=== PATIENT | female | born 1940 | race Caucasian/White ===

== ENCOUNTER 2016-11-01 09:13 | Day surgery (SDC) | payer OTHER ==
[~2016-11-01] VITALS: Ht 157.5 cm; Wt 87.5 kg
[~2016-11-01 09:13] MED LIST: ACETAMINOPHEN325 M1 PO; ALPRAZOLAM0.25 M2 PO; AMBIEN5 MG PO; AMLODIPINE BES2.5 MG PO; ASPIR 8181 M1; ASPIR-LOW81 MG PO; ASPIRIN325 MG PO; ATORVASTATIN CA40 MG PO; Ativan PO; BACLOFEN10 MG PO; CALCIUM 500 +1 EAC4 PO; CLOPIDOGREL75 MG PO; CRESTOR5 MG; CYANOCOBALAM1000 MCG; CYANOCOBALAM1000 MCG PO; Cleocin PO; DAILY VITE1 EAC1 PO; DICLOFENAC SODI75 MG PO; DULCOLAX5 MG PO; Dulcolax PR; ERGOCALCIF50000 UNIT PO; EXTRA STRENGTH500 M1 PO; Ecotrin PO; FEOSOL325 MG PO; FLUOXETINE HCL40 MG PO; FUROSEMIDE20 MG PO; GABAPENTIN300 MG PO; GABAPENTIN600 MG PO; HEPARIN SO5000 UNITS SC; ISOSORBIDE MONO30 MG PO; KENALOG,ARISTOC80 GM TP; LIDODERM 5% P1 PATCH TD; LIPITOR40 MG PO; LISINOPRIL20 MG PO; LISINOPRIL40 MG PO; LITE COAT ASPI325 M1 PO; LOPRESSOR25 MG PO; LOPRESSOR50 MG PO; LOSARTAN POTAS100 MG PO; METOPROLOL SUCC25 MG PO; METOPROLOL TART25 MG PO; METRONIDAZOLE500 MG PO; MILK OF MAGN PO; MIRTAZAPINE15 MG PO; MOTRIN600 MG PO; NEURONTIN300 MG PO; NORCO 5/3251 TABLET PO; OMEPRAZOLE40 M1 PO; Oscal 500 w/Vitamin PO; PAROXETINE HCL10 MG PO; PAROXETINE HCL20 MG PO; PAROXETINE HCL30 MG PO; PAROXETINE HCL40 MG PO; PAXIL10 MG PO; PAXIL40 MG PO; PERCOCET 5/31 TABLET PO; POTASSIUM CHLO10 ME4 PO; PROMETHAZINE HC25 M1 PO; Plavix PO; RESTORIL15 MG; RESTORIL15 MG PO; ROPINIROLE HC0.25 MG PO; SENOKOT S,PE1 TABLET PO; TESSALON200 MG PO; THERAGRAN1 TABLET PO; TIZANIDINE HCL2 MG PO; TRAZODONE HCL50 MG PO; TYLENOL EXTRA500 MG PO; Tylenol Regular Stre PO; ULTRAM50 MG PO; VITAMIN D250000 UNIT PO; VITAMIN D31000 UNI2 PO; VITAMIN D31000 UNIT PO; VITAMIN D5000 UNIT; VOLTAREN75 MG PO; ZANAFLEX2 MG PO; ZOFRAN4 MG PO; ZOLPIDEM TARTRAT5 MG PO
[2016-11-01 10:10] LABS: HEMATOCRIT 39.7 % (36.0-46.0); MCHC 34.3 G/DL (30.0-36.0); MCV 93.4 FL (83-99); MEAN PLAT.VOLUME 10.8 uM^3 (9.5-12.4); PLATELET COUNT 168 K/uL (156-360); RBC DIS.WIDTH-CV 13.8 % (11.8-14.6); RBC DIS.WIDTH-SD 47.1 % (39-53); RED BLOOD COUNT 4.25 M/uL (3.80-5.20); WHITE BLOOD COUNT 6.5 K/uL (4.1-10.2)
[2016-11-01 10:12] VITALS: BP 186/89
[2016-11-01 13:28] VITALS: BP 206/94
[2016-11-01 14:33] VITALS: BP 185/87
== END 2016-11-01 14:50 | disposition home or self-care (01) ==
LOC: SDC 09:13
PROVIDERS: Orthopaedic Surgery
PROC: 01Q53ZZ Repair Median Nerve, Percutaneous Approach (ICD-10-PCS; principal; 2016-11-01)
DX: G56.02 Carpal tunnel syndrome, left upper limb (principal); I10 Essential (primary) hypertension; E78.5 Hyperlipidemia, unspecified; I25.10 Atherosclerotic heart disease of native coronary artery without angina pectoris; I25.2 Old myocardial infarction; Z95.5 Presence of coronary angioplasty implant and graft
CPT/HCPCS: 85027; J0360; J1170; J3010; S0020

== ENCOUNTER 2017-02-09 12:09 | Emergency (ER) | payer OTHER ==
[~2017-02-09] VITALS: Ht 157.5 cm; Wt 102.3 kg
[2017-02-09 13:23] LABS: CHLORIDE 106 mEq/L (99-109); POTASSIUM 3.6 mEq/L (3.7-5.4); SODIUM 138 mEq/L (136-147)
[2017-02-09 13:24] LABS: GLUCOSE 150 mg/dL (70-99)
[2017-02-09 13:25] LABS: EOSINOPHIL (%) 0 % (0-5); HEMATOCRIT 33.6 % (36.0-46.0); IMMATURE GRANULOCYTE (%) 0.4 % (0.0-0.7); INSTRUMENT ABS NEUTROPHIL CT 8.5 K/uL; LYMPHOCYTE COUNT 0.6 K/uL (1.0-2.8); MCH 26.5 PG (29.0-34.0); MCHC 30.7 G/DL (30.0-36.0); MCV 86.4 FL (83-99); MEAN PLAT.VOLUME 11.1 uM^3 (9.5-12.4); MONOCYTE (%) 6.2 % (3-12); MONOCYTE COUNT 0.6 K/uL (0-0.8); NEUTROPHIL (%) 87.3 % (45-76); NEUTROPHIL COUNT 8.5 K/uL (1.8-6.4); PLATELET COUNT 213 K/uL (156-360); RBC DIS.WIDTH-CV 13.4 % (11.8-14.6); RED BLOOD COUNT 3.89 M/uL (3.80-5.20)
[2017-02-09 13:26] LABS: ANION GAP 9 MEQ/L (2-14)
[2017-02-09 13:28] LABS: GFR ESTIMATE (CALCULATED) > 59 mL/min/
[2017-02-09 13:29] LABS: UREA NITROGEN (BUN) 17 mg/dL (9-23)
[2017-02-09 13:31] LABS: WHITE BLOOD COUNT 9.8 K/uL (4.1-10.2)
[2017-02-09] MEDS ORDERED: TYLENOL WITH C1 EACH PO (16:06)
[2017-02-09 16:32] VITALS: BP 137/100
== END 2017-02-09 16:54 | disposition home or self-care (01) ==
LOC: EME 12:09
PROVIDERS: Emergency Medicine
PROC: 2W3DX1Z Immobilization of Left Lower Arm using Splint (ICD-10-PCS; principal; 2017-02-09)
DX: R56.9 Unspecified convulsions (principal); S52.502A Unspecified fracture of the lower end of left radius, initial encounter for closed fracture; W18.30XA Fall on same level, unspecified, initial encounter; Y92.008 Other place in unspecified non-institutional (private) residence as the place of occurrence of the external cause; I10 Essential (primary) hypertension; J45.909 Unspecified asthma, uncomplicated; E78.5 Hyperlipidemia, unspecified; K21.9 Gastro-esophageal reflux disease without esophagitis; I25.10 Atherosclerotic heart disease of native coronary artery without angina pectoris; I25.2 Old myocardial infarction; Z95.5 Presence of coronary angioplasty implant and graft; I50.9 Heart failure, unspecified; Z86.73 Personal history of transient ischemic attack (TIA), and cerebral infarction without residual deficits; F32.9 Major depressive disorder, single episode, unspecified
CPT/HCPCS: 70450; 72125; 73110; 80048; 85025; 93005; 99281; 99284; J2270; J2405; J3010

== ENCOUNTER 2017-02-11 16:15 | Inpatient (IN) | payer OTHER ==
[~2017-02-11] VITALS: Ht 157.5 cm; Wt 92.8 kg
[~2017-02-11 16:15] MED LIST changes: +TYLENOL WITH C1 EACH PO
[2017-02-11 17:13] LABS: POINT-OF-CARE METER ID UU13113702
[2017-02-11 17:45] LABS: CHLORIDE 109 mEq/L (99-109); POTASSIUM 3.6 mEq/L (3.7-5.4); SODIUM 142 mEq/L (136-147)
[2017-02-11 17:47] LABS: GLUCOSE 130 mg/dL (70-99)
[2017-02-11 17:48] LABS: ANION GAP 9 MEQ/L (2-14)
[2017-02-11 17:49] LABS: TOTAL BILIRUBIN 1.1 mg/dL (0.0-1.0)
[2017-02-11 17:50] LABS: SERUM ETHYL ALCOHOL < 10 mg/dL
[2017-02-11 17:51] LABS: GFR ESTIMATE (CALCULATED) 58 mL/min/
[2017-02-11 17:52] LABS: ALKALINE PHOSPHATASE 79 IU/L (3-129)
[2017-02-11 17:53] LABS: UREA NITROGEN (BUN) 23 mg/dL (9-23)
[2017-02-11 17:54] LABS: SALICYLATE < 5.0 MG/DL (15-30)
[2017-02-11 17:59] LABS: HEMATOCRIT 29.9 % (36.0-46.0); MCH 26.3 PG (29.0-34.0); MCHC 30.1 G/DL (30.0-36.0); MCV 87.4 FL (83-99); MEAN PLAT.VOLUME 11.4 uM^3 (9.5-12.4); PLATELET COUNT 178 K/uL (156-360); RBC DIS.WIDTH-CV 13.8 % (11.8-14.6); RBC DIS.WIDTH-SD 43.5 % (39-53); RED BLOOD COUNT 3.42 M/uL (3.80-5.20); WHITE BLOOD COUNT 5.6 K/uL (4.1-10.2)
[2017-02-11 18:24] LABS: ADD MIUA? NO; BILIRUBIN NEGATIVE; BLOOD NEGATIVE; COLOR YELLOW ((YELLOW)); GLUCOSE (STRIP) NEGATIVE; KETONES NEGATIVE; LEUKOCYTES NEGATIVE; NITRITE NEGATIVE; PROTEIN (STRIP) NEGATIVE; SPECIFIC GRAVITY 1.016 (1.000-1.030); UCUL ADDED? NO; UROBILINOGEN 0.2 MG/DL (0.2-1.0)
[2017-02-11 18:43] LABS: COCAINE NEGATIVE (150 ng/mL); METHAMPHETAMINE NEGATIVE (500 ng/mL); PHENCYCLIDINE NEGATIVE (25 ng/mL); THC CANNABINOIDS NEGATIVE (50 ng/mL)
[2017-02-11 18:44] LABS: ADD MEDTOX COMMENT Y; AMPHETAMINE NEGATIVE (500 ng/mL); BARBITURATES NEGATIVE (200 ng/mL); BENZODIAZEPINES NEGATIVE (150 ng/mL); INTERNAL CONTROLS VALID? YES; METHADONE NEGATIVE (200 ng/mL); OPIATES (MORPHINE) PRESUMPTIVE POSITIVE (100 ng/mL); OXYCODONE NEGATIVE (100 ng/mL); PROPOXYPHENE NEGATIVE (300 ng/mL); TRICYCLIC ANTIDEPRESSANTS NEGATIVE (300 ng/mL)
[2017-02-11] MEDS ORDERED: LO-DOSE ASPIRIN81 M2 PO (20:31)
[2017-02-11] MEDS ORDERED: LEVETIRACETAM250 MG PO (20:38)
[2017-02-11 21:45] VITALS: BP 144/75
[2017-02-11 23:58] VITALS: BP 103/53
[2017-02-12 01:28] LABS: TROP-I INTERPRETATION NEGATIVE; TROPONIN-I < 0.01 ng/mL (0.0-0.30)
[2017-02-12 04:25] VITALS: BP 133/73
[2017-02-12 07:52] VITALS: BP 130/62
[2017-02-12 08:48] LABS: ANION GAP 11 MEQ/L (2-14); CHLORIDE 110 MEQ/L (99-109); GFR ESTIMATE (CALCULATED) > 59 mL/min/; GLUCOSE 120 mg/dL (70-99); POTASSIUM 3.3 MEQ/L (3.7-5.4); SAMPLE HEMOLYSIS CHECK 0; SAMPLE ICTERIC CHECK 0; SAMPLE LIPEMIA CHECK 0; SODIUM 143 MEQ/L (136-147); UREA NITROGEN (BUN) 23 mg/dL (9-23)
[2017-02-12 08:52] LABS: TROP-I INTERPRETATION NEGATIVE; TROPONIN-I 0.02 ng/mL (0.0-0.30)
[2017-02-12 09:35] LABS: HEMATOCRIT 31.8 % (36.0-46.0); MCH 26.7 PG (29.0-34.0); MCHC 30.2 G/DL (30.0-36.0); MCV 88.6 FL (83-99); MEAN PLAT.VOLUME 11.4 uM^3 (9.5-12.4); PLATELET COUNT 161 K/uL (156-360); RBC DIS.WIDTH-CV 13.9 % (11.8-14.6); RBC DIS.WIDTH-SD 44.9 % (39-53); RED BLOOD COUNT 3.59 M/uL (3.80-5.20); WHITE BLOOD COUNT 4.9 K/uL (4.1-10.2)
[2017-02-12 11:49] VITALS: BP 143/83
[2017-02-12 15:17] LABS: TROP-I INTERPRETATION NEGATIVE; TROPONIN-I 0.02 ng/mL (0.0-0.30)
[2017-02-12 16:36] VITALS: BP 141/67
[2017-02-12 18:25] VITALS: BP 160/74
[2017-02-12 21:00] VITALS: BP 145/74
[2017-02-13] VITALS (8 sets, daily range): BP systolic 14–184; BP diastolic 66–84
[2017-02-13 11:05] LABS: HEMATOCRIT 35.9 % (36.0-46.0); MCH 26.5 PG (29.0-34.0); MCHC 29.5 G/DL (30.0-36.0); MCV 89.8 FL (83-99); MEAN PLAT.VOLUME 11.2 uM^3 (9.5-12.4); PLATELET COUNT 189 K/uL (156-360); RBC DIS.WIDTH-CV 13.9 % (11.8-14.6); RBC DIS.WIDTH-SD 44.5 % (39-53); WHITE BLOOD COUNT 4.9 K/uL (4.1-10.2)
[2017-02-13 11:31] LABS: ANION GAP 9 MEQ/L (2-14); CHLORIDE 111 MEQ/L (99-109); GFR ESTIMATE (CALCULATED) > 59 mL/min/; GLUCOSE 97 mg/dL (70-99); POTASSIUM 3.7 MEQ/L (3.7-5.4); SAMPLE HEMOLYSIS CHECK 0; SAMPLE ICTERIC CHECK 0; SAMPLE LIPEMIA CHECK 0; SODIUM 147 MEQ/L (136-147); UREA NITROGEN (BUN) 20 mg/dL (9-23)
[2017-02-14] VITALS: BP 152/78
[2017-02-14 04:07] VITALS: BP 177/79
[2017-02-14 04:30] VITALS: BP 154/74
[2017-02-14 07:22] LABS: EOSINOPHIL (%) 3.1 % (0-5); EOSINOPHIL COUNT 0.1 K/uL (0-0.3); HEMATOCRIT 30.1 % (36.0-46.0); IMMATURE GRANULOCYTE (%) 0.5 % (0.0-0.7); INSTRUMENT ABS NEUTROPHIL CT 2.3 K/uL; MCH 27.4 PG (29.0-34.0); MCHC 30.9 G/DL (30.0-36.0); MCV 88.5 FL (83-99); MEAN PLAT.VOLUME 12.1 uM^3 (9.5-12.4); MONOCYTE (%) 8.4 % (3-12); MONOCYTE COUNT 0.3 K/uL (0-0.8); NEUTROPHIL (%) 61.3 % (45-76); NEUTROPHIL COUNT 2.3 K/uL (1.8-6.4); PLATELET COUNT 170 K/uL (156-360); RBC DIS.WIDTH-CV 13.9 % (11.8-14.6); RBC DIS.WIDTH-SD 44.2 % (39-53); WHITE BLOOD COUNT 3.8 K/uL (4.1-10.2)
[2017-02-14 07:40] VITALS: BP 163/68
[2017-02-14 07:56] LABS: ALKALINE PHOSPHATASE 88 IU/L (3-129); ANION GAP 9 MEQ/L (2-14); CHLORIDE 110 MEQ/L (99-109); GFR ESTIMATE (CALCULATED) > 59 mL/min/; GLUCOSE 91 mg/dL (70-99); POTASSIUM 3.6 MEQ/L (3.7-5.4); SAMPLE HEMOLYSIS CHECK 0; SAMPLE ICTERIC CHECK 0; SAMPLE LIPEMIA CHECK 0; SODIUM 145 MEQ/L (136-147); TOTAL BILIRUBIN 0.7 MG/DL (0.0-1.0); UREA NITROGEN (BUN) 14 mg/dL (9-23)
[2017-02-14] MEDS ORDERED: LEVETIRACETAM500 MG PO (11:04)
[2017-02-14 11:27] VITALS: BP 165/76
[2017-02-14 15:02] LABS: CREATINE KINASE 69 IU/L (1-294)
[2017-02-14 15:46] VITALS: BP 127/73
== END 2017-02-14 19:04 | DRG 101 ==
LOC: EME 16:15 → EDOF 20:20 → 3EAST 20:20 → 4EAST 20:20 → 3EAST 02-12 18:13
PROVIDERS: Emergency Medicine; Hospitalist; Internal Medicine; Physician Assistant
PROC: 0RSPXZZ Reposition Left Wrist Joint, External Approach (ICD-10-PCS; principal; 2017-02-12)
DX: G40.909 Epilepsy, unspecified, not intractable, without status epilepticus (principal); T48.1X1A Poisoning by skeletal muscle relaxants [neuromuscular blocking agents], accidental (unintentional), initial encounter; T42.8X1A Poisoning by antiparkinsonism drugs and other central muscle-tone depressants, accidental (unintentional), initial encounter; Y92.009 Unspecified place in unspecified non-institutional (private) residence as the place of occurrence of the external cause; I11.0 Hypertensive heart disease with heart failure; I50.9 Heart failure, unspecified; I25.10 Atherosclerotic heart disease of native coronary artery without angina pectoris; K21.9 Gastro-esophageal reflux disease without esophagitis; Z95.5 Presence of coronary angioplasty implant and graft; I69.354 Hemiplegia and hemiparesis following cerebral infarction affecting left non-dominant side; F32.9 Major depressive disorder, single episode, unspecified; E78.5 Hyperlipidemia, unspecified; E78.00 Pure hypercholesterolemia, unspecified; S52.502A Unspecified fracture of the lower end of left radius, initial encounter for closed fracture; S52.612A Displaced fracture of left ulna styloid process, initial encounter for closed fracture; W19.XXXA Unspecified fall, initial encounter
CPT/HCPCS: 70450; 71010; 72125; 72131; 73110; 80048; 80053; 81003; 82550; 82948; 84484; 84999; 85025; 85027; 93005; 95819; 99281; 99284; 99285; G0480; J1644; J2270; J2310; J2405; J3010; J7030

== ENCOUNTER 2017-05-21 10:50 | Emergency (ER) | payer OTHER ==
[~2017-05-21] VITALS: Ht 157.5 cm; Wt 91.1 kg
[~2017-05-21 10:50] MED LIST changes: +LEVETIRACETAM250 MG PO; +LEVETIRACETAM500 MG PO; +LO-DOSE ASPIRIN81 M2 PO
[2017-05-21 11:29] LABS: MCH 25.6 PG (29.0-34.0); MCHC 30.6 G/DL (30.0-36.0); MCV 83.8 FL (83-99); MEAN PLAT.VOLUME 10.8 uM^3 (9.5-12.4); PLATELET COUNT 184 K/uL (156-360); RBC DIS.WIDTH-CV 16.4 % (11.8-14.6); RBC DIS.WIDTH-SD 50.7 % (39-53); RED BLOOD COUNT 3.94 M/uL (3.80-5.20); WHITE BLOOD COUNT 3.4 K/uL (4.1-10.2)
[2017-05-21 11:34] LABS: INTER. NORMALIZED RATIO 1.1; PROTHROMBIN TIME 12.2 SEC (10.2-12.9)
[2017-05-21 11:37] LABS: D-DIMER ELISA < 150.00 ng/mLDDU (<230)
[2017-05-21 11:39] LABS: CHLORIDE 112 mEq/L (99-109); POTASSIUM 3.5 mEq/L (3.7-5.4); SODIUM 144 mEq/L (136-147)
[2017-05-21 11:40] LABS: GLUCOSE 108 mg/dL (70-99)
[2017-05-21 11:42] LABS: ANION GAP 7 MEQ/L (2-14)
[2017-05-21 11:44] LABS: GFR ESTIMATE (CALCULATED) > 59 mL/min/
[2017-05-21 11:45] LABS: UREA NITROGEN (BUN) 11 mg/dL (9-23)
[2017-05-21 11:50] LABS: TROP-I INTERPRETATION NEGATIVE; TROPONIN-I < 0.01 ng/mL (0.0-0.30)
[2017-05-21] MEDS ORDERED: METOPROLOL SUCC25 MG PO (12:51)
[2017-05-21] MEDS ORDERED: TIZANIDINE HCL2 MG PO (12:57)
[2017-05-21] MEDS ORDERED: TRAMADOL HCL50 MG PO (12:58)
[2017-05-21 13:41] LABS: TROP-I INTERPRETATION NEGATIVE; TROPONIN-I < 0.01 ng/mL (0.0-0.30)
[2017-05-21 15:38] VITALS: BP 170/92
== END 2017-05-21 15:38 | disposition home or self-care (01) ==
LOC: EME 10:50 → ENRESERV 12:55 → CANRESERV 13:17 → ENRESERV 13:17 → EME 15:38
PROVIDERS: Emergency Medicine
DX: R07.9 Chest pain, unspecified (principal); R06.02 Shortness of breath; E78.5 Hyperlipidemia, unspecified; I25.2 Old myocardial infarction; Z86.73 Personal history of transient ischemic attack (TIA), and cerebral infarction without residual deficits; G40.909 Epilepsy, unspecified, not intractable, without status epilepticus; Z87.442 Personal history of urinary calculi; Z88.7 Allergy status to serum and vaccine; Z88.0 Allergy status to penicillin; Z88.6 Allergy status to analgesic agent
CPT/HCPCS: 71020; 80048; 84484; 85027; 85379; 85610; 85730; 93005; 99281; 99285

== ENCOUNTER 2017-11-17 15:08 | Emergency (ER) | payer OTHER ==
[~2017-11-17] VITALS: Ht 157.5 cm; Wt 109.0 kg
[~2017-11-17 15:08] MED LIST changes: +TRAMADOL HCL50 MG PO
[2017-11-17 15:51] LABS: HEMATOCRIT 35.2 % (36.0-46.0); HEMOGLOBIN 10.8 G/DL (11.9-15.5); MCH 24.9 PG (29.0-34.0); MCHC 30.7 G/DL (30.0-36.0); MCV 81.1 FL (83-99); PLATELET COUNT 219 K/uL (156-360); RBC DIS.WIDTH-CV 15.9 % (11.8-14.6); RBC DIS.WIDTH-SD 46.5 % (39-53); RED BLOOD COUNT 4.34 M/uL (3.80-5.20); WHITE BLOOD COUNT 6.4 K/uL (4.1-10.2)
[2017-11-17 16:05] LABS: CHLORIDE 107 mEq/L (99-109); POTASSIUM 3.6 mEq/L (3.7-5.4); SODIUM 143 mEq/L (136-147)
[2017-11-17 16:07] LABS: GLUCOSE 115 mg/dL (70-99)
[2017-11-17 16:11] LABS: CREATININE 0.8 mg/dL (0.6-1.3); GFR ESTIMATE (CALCULATED) > 59 mL/min/; UREA NITROGEN (BUN) 10 mg/dL (9-23)
[2017-11-17 16:17] LABS: TROP-I INTERPRETATION NEGATIVE; TROPONIN-I < 0.01 ng/mL (0.0-0.30)
[2017-11-17 18:43] VITALS: BP 109/89
== END 2017-11-17 18:53 | disposition home or self-care (01) ==
LOC: EME 15:08
PROVIDERS: Nurse Practitioner Family
DX: R06.02 Shortness of breath (principal); K44.9 Diaphragmatic hernia without obstruction or gangrene; I50.9 Heart failure, unspecified; K21.9 Gastro-esophageal reflux disease without esophagitis; E78.5 Hyperlipidemia, unspecified; J45.909 Unspecified asthma, uncomplicated; I25.10 Atherosclerotic heart disease of native coronary artery without angina pectoris; I25.2 Old myocardial infarction; F41.9 Anxiety disorder, unspecified; F32.9 Major depressive disorder, single episode, unspecified; R56.9 Unspecified convulsions; Z87.442 Personal history of urinary calculi; Z86.73 Personal history of transient ischemic attack (TIA), and cerebral infarction without residual deficits; Z79.82 Long term (current) use of aspirin; Z88.0 Allergy status to penicillin; Z88.7 Allergy status to serum and vaccine; Z91.041 Radiographic dye allergy status; Z88.5 Allergy status to narcotic agent; Z88.6 Allergy status to analgesic agent
CPT/HCPCS: 71046; 80048; 83880; 84484; 85027; 93005; 99281; 99285

== ENCOUNTER → 2017-12-27 | Outpatient (CLI) | payer OTHER | END | disposition home or self-care (01) | LOC: RES 13:31 | DX: J98.4 Other disorders of lung (principal) | CPT/HCPCS: 94060; 94727 ==